=== PATIENT | female | born 1965 | race Hispanic/Latino ===

== ENCOUNTER 2022-02-19 18:32 | Emergency (ER) | payer OTHER | END 2022-02-19 21:24 | disposition home or self-care (01) | LOC: ERS 18:32 | DX: S32.018A Other fracture of first lumbar vertebra, initial encounter for closed fracture (principal); S60.222A Contusion of left hand, initial encounter; E03.9 Hypothyroidism, unspecified; W11.XXXA Fall on and from ladder, initial encounter; Z79.01 Long term (current) use of anticoagulants | CPT/HCPCS: 72131 ==